=== PATIENT | female | born 2000 ===

== ENCOUNTER 2020-04-14 15:21 | Emergency (ER) | payer SELFPAY ==
[2020-04-14 15:56] VITALS: BP 161/90; PULSE 104; RESP 15; TEMP 37; O2SAT 94; BMI 72.3
[2020-04-14 16:14] VITALS: BP 175/113; PULSE 101; RESP 17; O2SAT 98
--- NOTE | 2020-04-14 16:14 | W.ED.GENADLT ---
HPI - General Adult General: Chief complaint: General Medical Stated complaint: HIGH BP for 1 month Time Seen by Provider: 04/14/20 16:03 Source: patient Mode of arrival: ambulatory Limitations: no limitations History of Present Illness: HPI narrative: Betsy is a very nice 20-year-old female who comes in complaining of high blood pressure. Patient's been keeping a log and has had numerous episodes of blood pressure in the 130s to 140s systolic but 1 measured blood pressure of 199 systolic yesterday. She went to the health department who gave her a blood pressure log book but then also told her to come to the ER. Patient denies any symptoms such as chest pain, shortness of breath, headache, fever, vomiting, back pain, leg swelling, or any other complaints. Patient does not feel as though she needs to be here but she understands that she does have high blood pressure readings and needs to get this monitored. Associated symptoms: Deny chest pain, dyspnea, headache(s), nausea, rash, palpitations, syncope or vomiting Review of Systems Const: Denies: fever(s) Eyes: Denies: change in vision ENMT: Denies: throat pain Card: Denies: chest pain, palpitations, syncope, pre-syncope or dyspnea on exertion Resp: Denies: dyspnea, productive cough or non-productive cough GI: Denies: abdominal pain, nausea, vomiting or diarrhea : Denies: flank pain, dysuria, urinary frequency or urinary urgency Musc: Denies: neck pain, back pain or extremity pain Skin/Breast: Denies: rash or pruritus Neuro: Denies: headache(s), numbness in extremities, weakness in extremities or dizziness [place]/Lymph: Denies: easy bruising or easy bleeding All/Imm: Denies: urticaria PFS ED PFSH: Medical History No pertinent past medical history Surgical History No pertinent past surgical history Social History Smoking and tobacco status: never smoked Alcohol intake: current Alcohol intake frequency: holidays/special occasions only Female Reproductive History: Date of last menstrual period: 01/24/20 Physical Exam Const: COMMON NORMALS: no acute distress, patient oriented x3, no limitations, healthy appearing and well nourished GENERAL APPEARANCE: cooperative, well kempt and well developed HENMT: COMMON NORMALS: normocephalic, atraumatic, external ears normal, EAC's normal and Normal external nose present HEAD & SCALP: normal to inspection, normocephalic and atraumatic FACE & SINUS: normal facial exam and face symmetric NOSE: Normal external nose present and Normal nares present EXTERNAL EAR: Yes external ears normal EXTERNAL AUDITORY CANAL: EAC's normal MOUTH: Normal oral and palatal mucosa present, lip normal and tongue normal Eye: COMMON NORMALS: Equal, round and reactive pupils present and conjunctivae normal GENERAL EYE: appearance normal, both eyes and all related structures ALIGNMENT: Yes alignment normal PERIORBITAL: periorbital findings normal EYELID: eyelids normal CONJUNCTIVA: Yes conjunctivae normal SCLERA: sclerae normal PUPIL: Yes Equal, round and reactive pupils present Neck/C-Spine: COMMON NORMALS: full ROM, no lymphadenopathy, supple, no meningeal signs and no JVD GENERAL: Yes normal visual inspection and Yes trachea midline Chest: COMMONS NORMALS: normal inspection of the chest and normal palpation of entire chest wall Resp: COMMON NORMALS: normal respiratory effort, No retractions and No use of accessory muscles EFFORT & INSPECTION: Yes able to speak in complete sentences and Yes symmetric chest movement AUSCULTATION: no crackles, no rales, no rhonchi and no wheezes Cardio: COMMON NORMALS: no JVD, regular rate, regular rhythm, S1 normal heart sound present and S2 normal heart sound present RATE: regular rate RHYTHM: regular rhythm HEART SOUNDS: S1 normal heart sound present, S2 normal heart sound present, no click, no gallops, no murmurs, no rubs and abnormal split S2 GI: COMMON NORMALS: Soft to palpation and No hepatosplenomegaly present PALPATION: Yes Soft to palpation, No Tenderness to palpation present (GI), No Guarding due to palpation present (GI), No Rigid due to palpation, Yes No hepatosplenomegaly present, No Hernia present, No Palpable mass present and No Pulsatile mass present : COMMON NORMALS: Yes no CVA tenderness BLADDER/KIDNEY EXAM: Yes no CVA tenderness EXTERNAL FEMALE EXAM: No Hernia present Back/Pelvis: COMMON NORMALS: no CVA tenderness, thoracic and lumbar spine normal to inspection, no thoracic nor lumbar tenderness and thoraco-lumbar ROM normal Extremity: COMMON NORMALS: normal to inspection, full ROM, capillary refill normal, no joint enlargement, no clubbing, cyanosis or edema and no calf tenderness Neuro: COMMON NORMALS: patient oriented x3, CN's II-XII intact bilaterally, moves all extremities, no focal motor deficits and no sensory deficits noted MENINGEAL SIGNS: Yes no meningeal signs SPEECH: speech normal Psych: COMMON NORMALS: mental status grossly normal, Normal thought process present, cooperative, normal affect, speech normal and activity/motor behavior normal APPEARANCE: Yes well kempt SPEECH: Yes normal speech THOUGHT PROCESS: Normal thought process present Skin: COMMON NORMALS: no rashes or lesions noted, turgor normal, no jaundice, no petechiae and no mottling GENERAL SKIN EXAM: no rashes or lesions noted and turgor normal Course Vital Signs: Vital signs: Vital Signs Temperature 98.6 F 04/14/20 15:56 Pulse Rate 103 H 04/14/20 16:31 Respiratory Rate 16 04/14/20 16:31 Blood Pressure 167/107 04/14/20 16:31 Pulse Oximetry 98 04/14/20 16:31 MDM - General Adult MDM Narrative: Medical decision making narrative: Betsy is a very nice 20-year-old female who comes in with a complaint of high blood pressure. She has no symptoms at all. She states that she does feel somewhat anxious at this time but she thinks that is secondary to just being in the hospital it makes her upset. Patient denies any other complaints. I have offered a complete cardiac work-up but she declines. She would rather go home. I did arrange for her to see Betsy Campbell APN tomorrow at 1 PM for establishment and for further evaluation of blood pressure. Patient states that she can make this patient and has no problems with this appointment. She agrees to return should she develop any symptoms between now and then but at this time she is ready to be discharged. She was encouraged to return should she change her mind or she develop any symptoms. Discharge Plan Discharge Patient Disposition: Home, Self-Care Clinical Impression: Episode of hypertension Condition: Stable Discharge Orders: Discharge Order (Routine); Ordered 04/14/20 Ordered By: Jannet Saeed Referrals: Betsy Campbell APRN [Nurse Practitioner] - 1-3 days (You have an appointment to see Ms. Campbell at 1 PM tomorrow. Be certain you follow-up for recheck. Her address is the same as Dr. Tellez's.) Sunny Tellez MD [Physician] - Discharge Diet: Low Salt Discharge Activity: Resume usual activity Patient Instructions: Hypertension (ED) Activity Restrictions/Additional Instructions: Please return to the ER immediately for any of the signs or symptoms listed on your discharge instruction sheets, worsening/changing of your symptoms, you are not getting better as quickly as expected, or for ANY other cause or concerns. Continue to keep a log of your blood pressure and take this with you when you see Ms. Adrian STRICKLAND tomorrow for recheck. Discharge Date/Time: 04/14/20 16:31 Coding Level of Care Code ED [employer] Driver for Ericka Macedo
[2020-04-14 16:31] VITALS: BP 167/107; PULSE 103; RESP 16; O2SAT 98
== END 2020-04-14 16:31 | disposition home or self-care (01) ==
LOC: ER 16:36
DX: I10 Essential (primary) hypertension (principal)
CPT/HCPCS: 12345; 99282

== ENCOUNTER → 2021-10-15 18:10 | Outpatient (BNVA) | payer BC, SELFPAY | PROVIDERS: PCP Nurse Practitioner Family; Visit Provider Registered Nurse Neonatal Intensive Care | DX: Z20.822 Contact with and (suspected) exposure to COVID-19 (principal); R50.9 Fever, unspecified; R05.9 Cough, unspecified | CPT/HCPCS: 87635 ==